=== PATIENT | female | born 1980 | race Two or more races ===

== ENCOUNTER 2020-11-08 06:07 | Inpatient (IN) | payer OTHER ==
[~2020-11-08] VITALS: Ht 167.6 cm; Wt 94.3 kg
[2020-11-08] VITALS (11 sets, daily range): BP systolic 103–141; BP diastolic 55–82
[~2020-11-08 06:07] MED LIST: CELEXA20 MG ORAL; GABAPENTIN100 MG ORAL; IBUPROFEN600 M1 ORAL; Pantoprazole Inj IVP SCH; TRAMADOL HCL50 MG ORAL; Vancomycin 1gm/NS 275ml IVPB SCH
[2020-11-08] MEDS ORDERED: fentaNYL 100 mcg/2 mL IV ONE ×2 (06:56→12:39)
[2020-11-08] MEDS ORDERED: Midazolam 2mg/2ml Inj ONE (06:57)
[2020-11-08] MEDS ORDERED: Lidocaine 1% MPF 10mg/ml 5ml ONE (06:58)
[2020-11-08] MEDS: MAGNESIUM SULFATE 1 GM IVPB SCH (07:00)
[2020-11-08] MEDS ORDERED: EPINEPHrine 1mg/1ml Amp ONE (07:01)
[2020-11-08] MEDS ORDERED: Pantoprazole Inj ONE (07:01)
[2020-11-08] MEDS ORDERED: Bacitracin Oint 15gm Tube TOPIC ONE (07:01)
[2020-11-08] MEDS ORDERED: Gelfoam Size TOPIC ONE (07:02)
[2020-11-08] MEDS ORDERED: Bupivacaine 0.5% Inj 30 ml vial INJ ONE ×4 (07:02→13:25)
[2020-11-08] MEDS ORDERED: Bacitracin 50000 Units Vial ONE (07:03)
[2020-11-08] MEDS ORDERED: Rocuronium Bromide 50mg/5ml Inj IV ONE (07:03)
[2020-11-08] MEDS ORDERED: Succinylcholine 20mg/ml 10ml vial ONE (07:03)
[2020-11-08] MEDS ORDERED: Thrombin 5000 units TOPIC ONE ×2 (07:03→07:04)
[2020-11-08] MEDS ORDERED: Heparin 1000 units/ml 1ml Vial ONE (07:05)
[2020-11-08] MEDS ORDERED: Vancomycin 1gm vial IVPB ONE (07:23)
[2020-11-08] MEDS ORDERED: TransDerm Scop 1.5mg/72HR Patch TDERMAL ONE (07:34)
[2020-11-08] MEDS ORDERED: NS Irrig 1000ml IRRIG ONE ×2 (07:41→08:34)
[2020-11-08] MEDS ORDERED: Sterile Water Irrig 1000ml IRRIG ONE (08:00)
[2020-11-08] MEDS ORDERED: LR 1000ml ONE ×2 (08:00)
[2020-11-08] MEDS ORDERED: propofoL 1,000mg/100ml IV ONE (08:00)
--- NOTE | 2020-11-08 08:14 | Pre-Procedure Note/Attestation ---
Pre-Procedure Note/Attestation Complete Prior to Procedure Planned Procedure: bilateral Procedure Narrative: revision of hardware, removal of pedicle screws at L5-S1 level with decompression of the L4-5 level and pedicle screw fixation from L4-L5 level with posterior lateral arthrodesis, use of allograft, autograft and iliac crest bone marrow aspirate. Attestation I attest that I discussed the nature of the procedure; its benefits; risks and complications; and alternatives (and the risks and benefits of such alternatives), prior to the procedure, with the patient (or the patient's legal signs sales representative). I attest that, if there was a reasonable possibility of needing a blood transfusion, the patient (or the patient's legal signs sales representative) was given the [place] Department [employer] [facility] standardized written summary, pursuant to the [place] Blood Safety Act ([place] Health and Safety Code # 1645, as amended). I attest that I re-evaluated the patient just prior to the surgery and that there has been no change in the patient's H&P, except as documented below: Bernabe Wallis MD Nov 08, 2020 08:14
[2020-11-08] MEDS ORDERED: ePHEDrine 50mg/ml Inj ONE (09:11)
[2020-11-08] MEDS ORDERED: Sodium Chloride 10ml vial INJ ONE ×2 (09:11→09:28)
[2020-11-08] MEDS ORDERED: Morphine Sulfate 10mg/ml Inj ONE (09:27)
[2020-11-08] MEDS ORDERED: Neostigmine 1mg/ml 10ml Inj ONE (09:28)
[2020-11-08] MEDS ORDERED: Glycopyrrolate 0.2mg/ml 1ml Vial ONE (09:28)
--- NOTE | 2020-11-08 09:43 | Anethesia Preoperative Eval ---
Anesthesia Pre-op PMH/ROS General Date of Evaluation: Nov 08, 2020 Time of Evaluation: 07:16 Anesthesiologist: Stefanie ASA Score: ASA 2 Mallampati Score Class I : Soft palate, uvula, fauces, pillars visible Class II: Soft palate, uvula, fauces visible Class III: Soft palate, base of uvula visible Class IV: Only hard plate visible Mallampati Classification: Class III - small mouth opening Surgeon: Bimal Diagnosis: Lumbar radiculopathy Surgical Procedure: Revision of posterior lumbar fusion Anesthesia History: PONV Family History: no anesthesia problems Allergies: Coded Allergies: ALCOHOL (Verified Allergy, Severe, RASH, 11/07/20) GUM MASTIC (Verified Allergy, Severe, RASH, 11/07/20) METHYL SALICYLATE (Verified Allergy, Severe, RASH, 11/07/20) STORAX (Verified Allergy, Severe, RASH, 11/07/20) ACETAMINOPHEN (Verified Allergy, Intermediate, RASH, ITCHING, 11/07/20) HYDROCODONE (Verified Allergy, Intermediate, RASH, ITCHING, 11/07/20) Patient NPO?: Yes Past Medical History Cardiovascular: Denies: HTN, CAD, OR, valve dz, arrhythmia, other Pulmonary: Denies: asthma, COPD, VANDANA, other Gastrointestinal/Genitourinary: Reports: GERD - mild; Denies: CRI, ESRD, other Neurologic/Psychiatric: Reports: depression/anxiety, other - chronic pain; Denies: dementia, CVA, TIA Endocrine: Denies: DM, hypothyroidism, steroids, other HEENT: Denies: cataract (L), cataract (R), glaucoma, LYTTON (L), LYTTON (R), other Hematology/Immune: Denies: anemia, DVT, bleeding disorder, other Musculoskeletal/Integumentary: Denies: OA, RA, DJD, DDD, edema, other Other: other - overweight PMH Narrative: as above PSxH Narrative: See H&P Anesthesia Pre-op Phys. Exam Physician Exam Last Vital Signs Date Time Temp Pulse Resp B/P (MAP) Pulse Ox O2 Delivery O2 Flow Rate FiO2 11/08/20 06:54 Room Air 11/08/20 06:48 97.2 81 18 129/75 (93) 98 Constitutional: NAD Neurologic: CN 2-12 intact Cardiovascular: RRR, no M/R/G Respiratory: CTA Gastrointestinal: S/NT/ND Airway Exam Mallampati Score: Class III MO: limited Neck: short ROM: limited Teeth: intact Dentures: no upper, no lower Anesthesia Pre-op A/P Labs see chart Urine Test Test 11/08/20 06:20 Urine HCG, Qualitative Negative (NEGATIVE) Studies Pre-op Studies: EKG - NSR Risk Assessment & Plan Assessment: ASA 2 Plan: GA with ETT prone position, neuromonitoring, PONV prevention Status Change Before Surgery: No Pre-Antibiotics Drug: Vanco 1gr., Gentamycin 80 mg. Given Within 1 Hr of Incision: Yes Time Given: 09:10 Vipul Watts MD Nov 08, 2020 09:43
[2020-11-08] MEDS ORDERED: Acetaminophen (Non formulary) 100 ML IV ONE (09:45)
[2020-11-08] MEDS ORDERED: TransDerm Scop 1.5mg/72HR Patch TDERMAL SCH (09:47)
[2020-11-08] MEDS ORDERED: Metoprolol Tartrate 5mg/5ml Inj ONE (10:50)
[2020-11-08] MEDS ORDERED: Labetalol 5mg/ml 20ml vial IV ONE (12:23)
[2020-11-08] MEDS ORDERED: Metoclopramide 10mg/2ml Inj IVP PRN (12:45)
[2020-11-08] MEDS ORDERED: Meperidine 25mg/1ml Inj (FOR RIGORS ONLY) IV PRN (12:45)
[2020-11-08] MEDS ORDERED: Hydromorphone 0.5mg/0.5ml inj IVP PRN (12:45)
[2020-11-08] MEDS ORDERED: DiphenhydrAMINE 50mg/ml Inj IVP PRN (12:45)
[2020-11-08] MEDS ORDERED: LR 1000ml 1,000 ML IVLG SCH (12:45)
[2020-11-08] MEDS ORDERED: Ketorolac 30mg Inj IV PRN (12:45)
[2020-11-08] MEDS ORDERED: Midazolam 2mg/2ml Inj IVP PRN (12:45)
[2020-11-08] MEDS ORDERED: Rate Change PCA 1 Each MISC PRN (14:15)
[2020-11-08] MEDS ORDERED: PCA Education Pamphlet MISC SCH (14:15)
[2020-11-08] MEDS ORDERED: PCA HYDROmorphone 1mg/ml 30 ML IV PRN (14:15)
[2020-11-08] MEDS ORDERED: Naloxone 0.4mg/ml Inj IVP PRN ×2 (14:15→14:30)
--- NOTE | 2020-11-08 14:17 | Brief Operative Note ---
Immediate Post Operative Note Operative Note Chief Complaint: Intractable right LE radiculopathy. s/p L4-5XLIF. h/oL5-S1 TLIF. Pre-op Diagnosis: 1. S/p slip and fall with intractable low back pain and radiculopathy. 2. h/o L5-S1 TLIF 3. S/p L4-5 XLIF 4. Intractable R lower extremity radiculopathy. 5. Central canal and foraminal stenosis L4-5 level 6. Lack of improvement from medical therapy, interventional injections. Procedure: 1. Removal of hardware L5-S1 bilaterally, two rods, 4 pedicle screws and 4 set screws 2. Trans pedicular fixation L4 and L5 level bilaterally, 6.0 x 50 mm and 7.0 by 45 mm U&I system 3. arthrodesis L4-5 level, bilaterally 40 mm rods 4. Posterolateral fusion L4-5 level bilaterally, autologous bone, allograft, iliac crest bone marrows pirate concentrate 5. [place] of local bone from lamina/facet. 6. Right iliac crest bone marrow aspirate. 7. Transforaminal decompression R L4 and L5 roots, total facetectomy. 8. R L4 hemilaminectomy removal of epidural scar and complete central and lateral recess decompression. 9. Application of epidural fat graft to L4 laminectomy defect. 10. Neurolysis of the right L5 nerve root. 11. Intra-operative neuromonitoring and pedicle screw stimulation, SSEP and dermatomal evoked potential monitoring 12. Microdissection 13. Supervision, interpretation and use of fluoroscopy 14. Modifier 22 due to difficulty of the case secondary to increased BMI, extensive jennifer at the operative site, depth of the surgical corridor. Post-op Diagnosis: same as pre-op Findings: consistent w/pre-op dx studies Surgeon: Bernabe Wallsi MD Straightening Machine Feeder: Adama Daniel MD Anesthesiologist: Vipul Watts MD Anesthesia: general Specimen: yes - Epidural scar L4-5 level Complications: none Condition: stable Fluids: 105 liters crystalloids Estimated Blood Loss: volume - 150 cc Drains: hemovac Implant(s) used?: Yes - U&I pedicle screw system Bernabe Wallis MD Nov 08, 2020 14:17
--- NOTE | 2020-11-08 14:18 | Immediate Post-Op Evaluation ---
Immediate Post-Op Evalulation Immediate Post-Op Evalulation Procedure: Revision of lumbar L4-L5 interbody fusion with hardwear removal and decompr Date of Evaluation: Nov 08, 2020 Time of Evaluation: 14:15 IV Fluids: 1200 Blood Products: none Estimated Blood Loss: 150 Urinary Output: 400 Blood Pressure Systolic: 112 Blood Pressure Diastolic: 62 Pulse Rate: 98 Respiratory Rate: 20 O2 Sat by Pulse Oximetry: 98 Temperature (Fahrenheit): 98.9 Pain Score (1-10): 1 Nausea: No Vomiting: No Complications none Patient Status: reacts, patent, extubated, none Hydration Status: adequate Vipul Watts MD Nov 08, 2020 14:18
[2020-11-08] MEDS ORDERED: Milk of Magnesia 30ml Ud ORAL PRN (14:30)
--- NOTE | 2020-11-08 14:52 | General Progress Note ---
Progress Note Progress Note Neurosurgery Post-op S/ Incsional pain under control. Increased sensation in the right leg. O/ Last 24 Hour Vital Signs Date Time Temp Pulse Resp B/P (MAP) Pulse Ox O2 Delivery O2 Flow Rate FiO2 11/08/20 14:30 99 14 121/66 100 Simple Mask 6 11/08/20 14:20 103 10 117/62 100 Simple Mask 6 11/08/20 14:18 98 20 98 11/08/20 14:10 100 11 113/65 100 Simple Mask 6 11/08/20 14:05 110 12 110/60 100 Simple Mask 6 11/08/20 14:02 98.9 119 20 103/55 100 Simple Mask 6 11/08/20 06:54 Room Air 11/08/20 06:48 97.2 81 18 129/75 (93) 98 Alert and oriented x 4 Moves all extremities well Improvement in right leg sensation. HV minimal output. doing well to floor when cleared by PACU. updated Bernabe Wallis MD Nov 08, 2020 14:52
--- NOTE | 2020-11-08 16:00 | Diagnostic Imaging Report ---
INDICATION: Pain, intraoperative TECHNIQUE: Intraoperative imaging Fluoroscopy time: 40 seconds Total dose: 0.31 mGym2 Total number of images: 16 COMPARISON: None FINDINGS: Intraoperative images document stools overlying S1, L4, and L2-3 disc, subsequent hardware removal from S1 and placement of hardware bridging L4 and L5 IMPRESSION: Intraoperative imaging, as described
--- NOTE | 2020-11-08 16:00 | Operative Note - Dictated ---
DATE OF OPERATION: 11/08/2020 PREOPERATIVE DIAGNOSES: 1. History of slip and fall in May 2018 with intractable back pain and lower extremity radiculopathy. 2. Status post right L4-L5 extreme lateral interbody fusion. 3. History of prior L5-S1 transforaminal lumbar interbody fusion by outside surgeon. 4. Persistent right lower extremity radiculopathy. 5. Lack of improvement from conservative measures, neuropathic pain medications, and lumbar bracing. POSTOPERATIVE DIAGNOSES: 1. History of slip and fall in May of 2018 with intractable back pain and lower extremity radiculopathy. 2. Status post right L4-L5 extreme lateral interbody fusion. 3. History of prior L5-S1 transforaminal lumbar interbody fusion by outside surgeon. 4. Persistent right lower extremity radiculopathy. 5. Lack of improvement from conservative measures, neuropathic pain medications, and lumbar bracing. PROCEDURE: 1. Removal of bilateral hardware from L5-S1 level including 2 rods, 4 set screws, and 4 pedicle screws. 2. Transpedicular fixation at L4 and L5 levels bilaterally using 6.0 x 50 mm and 7.0 x 45 mm pedicle screws respectively using U and I system. 3. Bilateral arthrodesis L4-L5 level 40 mm rods. 4. Posterolateral arthrodesis with autologous bone graft, allograft, iliac crest bone marrow aspirate concentrate at L4-L5 bilaterally. 5. [place] of local bone from lamina and the facet resection. 6. Right iliac crest bone marrow aspirate and processing for grafting. 7. Transforaminal decompression of right L4 and L5 roots with total inferior right L5 facetectomy. 8. Right L4 hemilaminectomy, medial facetectomy and foraminotomy, removal of epidural scar, complete central and lateral recess decompression and ligamentectomy. 9. Application of epidural fat graft, right L4-L5 laminar defect. 10. Neurolysis of the right L5 nerve root with microdissection. 11. Intraoperative use interpretation of fluoroscopy. 12. Intraoperative neuromonitoring and pedicle screw stimulation, somatosensory-evoked potential and dermatomal-evoked potential monitoring and interpretation. 13. Modifier 22 secondary to difficulty of the case, increased patient's BMI, extensive operative site scar, and depth of surgical corridor. SURGEON: Bernabe Wallis MD INTERNATIONAL EDITORIAL PRODUCER SURGEON: Adama Daniel MD ANESTHESIOLOGIST: Vipul Watts MD ANESTHESIA TYPE: General endotracheal anesthesia. EBL: 150 mL. IV FLUIDS: 1.5 L crystalloids. DRAIN: Epidural Hemovac. INDICATION: Patient is a pleasant 40-year-old woman with a prior history of L5-S1 transforaminal pedicle screw fixation and interbody fusion. She had done well after this procedure up until a slip and fall in May of 2018. She developed intractable back pain and radiculopathy. She has undergone a number of conservative measures including medical therapy and activity modification without improvement. She underwent an extreme lateral L4-L5 interbody fusion approximately in July 2020, with improvement in her back pain, but persistent right lower extremity radiculopathy. Postoperative imaging studies including x-ray, CT scan, and MRIs were performed, which showed appropriate placement of the interbody cage, but persistent central compression of the nerve root. Patient was treated with lumbar bracing, activity modification, and neuropathic pain medications including gabapentin without improvement. After detailed discussion with patient and her family, patient decided to proceed with the above surgery. Risks of the operation including, but not limited to risk of infection, bleeding, nerve damage, paralysis, spinal fluid leakage requiring revision surgery, hardware failure requiring revision surgery, adjacent segment breakdown requiring additional treatments in the future including medical therapy, physical therapy, interventional pain injections, and ultimately adjacent segment fusion, risk of anesthesia including coma and were all discussed with the patient in detail. Increased risk of perioperative complications due to potential exposure and infection by COVID-19 was also explained to the patient. She voiced understanding of these risks and signed a consent to proceed. DETAIL OF PROCEDURE: Patient was evaluated in the preoperative area. History and COVID-19 results and questionnaire were reviewed. She had a face mask throughout the encounter. She was accompanied to the operating room on a gurney. She was identified and underwent uneventful endotracheal intubation. She received preincisional IV antibiotics, magnesium sulfate, and Decadron. Patient was placed prone on a Varinder table. Care was taken to pad all pressure points. Neuromonitoring leads were attached. Boss catheter was inserted prior to the positioning. Prior posterior incision site was identified. Hair was removed using a razor. Back was pre-prepped. Fluoroscopic images were obtained with skin markers in place to localize the lumbar spine. Next, back was prepped and draped in sterile fashion. The circulating nurse called the time-out and the planned procedure was decided and verified. The microscope was brought to the field. The incision site was infiltrated using Marcaine and epinephrine. Using a #15 blade, the prior midline incision was reopened. Dissection was carried down to the level of the subcutaneous fascia. Subcutaneous fascia was opened. A fat graft was obtained and placed in antibiotic irrigation. Using a cannulated trocar, the right iliac crest was cannulated. A 30 mL of bone marrow was removed in 10 mL increments. Between each 10 mL removal, the trocar was advanced 1 cm. The bone marrow was handed off to a dental laboratory technician, who then returned highly concentrated stem cells portion of the iliac crest bone marrow aspirate to the field, which was then mixed with DBM allograft. A 2 cm paramedian incision was created on each side from midline. The fascia was incised using Bovie knife. A plane was then created in the intermuscular layer to the L4-L5 and L5-S1 facet capsule complexes bilaterally. The prior hardware was identified. There was extensive scarring. With meticulous microdissection, the scar was removed. The hardware was exposed. Using an universal set, the hardware was removed in total including 4 set screws, 2 rods, and 4 pedicle screws. Attention was given to the right L4-L5 level. There was extensive epidural scarring. Using meticulous microdissection, the scar was elevated from the epidural space. Due to the complexity of the case, the patient's BMR requiring additional time for positioning, and depth of the surgical corridor, modifier 22 is being used here. Using high-speed drill, a right L4 hemilaminectomy was performed. Bone was harvested for future grafting. Using sharp curette dissection, the epidural scar was removed from the under portion of the L4 hemilamina. Using high-speed drill, the inferior L4 facet was removed at the level of the pars. Complete right L4 facetectomy was performed. The superior L5 facet was also drilled down to increase the foraminal height. A right transforaminal approach was then created for decompression of the exiting L4 nerve root and the traversing right L5 nerve root. Using bipolar cautery and micro scissors and micro dissection, the right L5 nerve root was freed from the surrounding scar. Neurolysis of the L5 nerve root was necessary to mobilize the thecal sac medially and ensure no further compression of the nerve roots anteriorly. At the baseline, there was significant delay of the right L4 and absent right L5 signal. At the end of the decompression, the right L4 and L5 signals became symmetrical to the left side. This was a significant improvement in neuromonitoring observed during the procedure. The dura was protected throughout the decompression using Gel-Foam and cottonoids. There was no evidence of intraoperative CSF leak. The central canal was decompressed by removing the ligamentum flavum centrally. Using high-speed drill, the underbelly of the L4 lamina was drilled and a decompression was carried out to the contralateral side. After adequate decompression, an epidural fat graft was placed to cover the laminectomy defect and a transforaminal decompression at the L4-L5 level. This provided excellent coverage. Attention was given to the pedicle screw trajectories for L4 and L5. A 7.0 x 45 mm screw and a 6.0 x 50 mm screw sizes were then chosen for the L5 and S1 levels. Pedicle screws were inserted under fluoroscopic guidance bilaterally at the L4 and L5 levels. The pedicle screws were then stimulated using intraoperative pedicle screw stimulation. There was no evidence of electrical breach. Wound was irrigated with copious amount of antibiotic irrigation. Two 40 mm rods were then inserted and secured to the pedicle screws bilaterally. Posterolateral arthrodesis was also performed with autologous bone graft, allograft and autograft combination and placed into the posterolateral portion of the facets. This was performed after drilling the posterolateral facets, particularly on the left side. An epidural drain was placed on the right-hand side and brought out through a separate stab incision. The incision was closed meticulously in multiple layers using 0, 2-0, and 3-0 Vicryl stitches. The skin was dressed with Dermabond. Sterile dressing was applied. The drain was sutured to the skin using a 4-0 Monocryl suture. Patient tolerated this procedure well. Instrument count was correct at the end of the case. COMPLICATIONS: None. Bernabe Wallis M.D. DR: MOHIT JOB#: [id number] CC: JOHNSON
[2020-11-08] MEDS: Docusate 100mg cap ORAL SCH (18:00)
[2020-11-08] MEDS: Docusate Sod/Senna tab ORAL SCH (18:00)
[2020-11-08] MEDS: NS w/KCl 20mEq 1000ml 1,000 ML IV SCH (18:18)
[2020-11-08] MEDS: PCA shift volume MISC SCH (19:00)
--- NOTE | 2020-11-08 19:31 | General Progress Note ---
Progress Note Progress Note Neurosurery follow-up S/ Comfortable on FILM PROCESSOR mnimal use. Feels more sensation in th eright leg and strength. O/ Last 24 Hour Vital Signs Date Time Temp Pulse Resp B/P (MAP) Pulse Ox O2 Delivery O2 Flow Rate FiO2 11/08/20 16:27 108 18 97 11/08/20 15:34 98.6 108 18 119/82 (94) 97 11/08/20 15:31 Nasal Cannula 2.0 11/08/20 15:24 99.1 11/08/20 15:24 11 11/08/20 15:09 12 11/08/20 15:00 99.1 100 13 139/81 100 Nasal Cannula 3 11/08/20 14:54 13 11/08/20 14:45 98 12 141/71 100 Nasal Cannula 3 11/08/20 14:30 99 14 121/66 100 Simple Mask 6 11/08/20 14:20 103 10 117/62 100 Simple Mask 6 11/08/20 14:18 98 20 98 11/08/20 14:10 100 11 113/65 100 Simple Mask 6 11/08/20 14:05 110 12 110/60 100 Simple Mask 6 11/08/20 14:02 98.9 119 20 103/55 100 Simple Mask 6 11/08/20 06:54 Room Air 11/08/20 06:48 97.2 81 18 129/75 (93) 98 Alert and oriented x 4 Normal sensation in th eextremities Significant improvement in th eright Quad and anteriro tibialis strength Minimal HV output doing well D/c FILM PROCESSOR in am start oral pain medications Lumbar brace at pat's bedside with front extension. PT in am D/c stephenson in am advance diet d/w with nursing in detail Dr. Day internal medicine follow up Bernabe Wallis MD Nov 08, 2020 19:31
[2020-11-08] MEDS: Vancomycin 1 GM in D5W 275 ML IVPB SCH (20:35)
--- NOTE | 2020-11-08 22:01 | History and Physical Report ---
DATE OF ADMISSION: 11/08/2020 HISTORY OF PRESENT ILLNESS: Patient is an unfortunate female, status post lumbar fusion who has been having a lot of pain mainly in the back area. She denies nausea or vomiting. She denies any palpitation. She is a smoker. PAST MEDICAL HISTORY: Significant for none. MEDICATIONS: Prior to hospitalization, Celexa, tramadol, Motrin, MVI, and vitamin. She resumed her Celexa here. PHYSICAL EXAMINATION: HEENT: Normocephalic and atraumatic. Extraocular muscles intact. HEART: S1 and S2. LUNGS: Clear. ABDOMEN: Soft. EXTREMITIES: Moving all 4 extremities. ASSESSMENT AND PLAN: 1. Status post complex lumbar spine surgery. 2. DVT prophylaxis with sequential compression stocking. 3. VINEET hose stocking. 4. Perioperative antibiotic prophylaxis. 5. Postoperatively, physical therapy. 6. Resume Celexa. 7. Patient is a smoker. We will give her nicotine patch. Case was discussed with the nurse at length. Santo Day M.D. DR: KIM JOB#: [id number] CC:
[2020-11-09] VITALS: BP 131/79
[2020-11-09 04:00] VITALS: BP 124/79
[2020-11-09] MEDS: NS w/KCl 20mEq 1000ml 1,000 ML IV SCH (04:16)
[2020-11-09 05:34] LABS: BASOPHILS % (AUTO) 0.4 % (0.0-2.0); EOSINOPHILS % (AUTO) 0.3 % (0.0-3.0); HEMATOCRIT 31.1 % (37.0-47.0); HEMOGLOBIN 11.1 G/DL (12.0-16.0); LYMPHOCYTES % (AUTO) 15.1 % (20.0-45.0); MEAN CORPUSCULAR VOLUME 88 FL (80-99); MONOCYTES % (AUTO) 6.6 % (1.0-10.0); NEUTROPHILS % (AUTO) 77.5 % (45.0-75.0); PLATELET COUNT 256 K/UL (150-450); RED BLOOD COUNT 3.54 M/UL (4.20-5.40); WHITE BLOOD COUNT 16.3 K/UL (4.8-10.8)
[2020-11-09 05:41] LABS: ANION GAP 6 mmol/L (5-15); BLOOD UREA NITROGEN 10 mg/dL (7-18); CALCIUM 8.3 MG/DL (8.5-10.1); CARBON DIOXIDE 27 MMOL/L (21-32); CHLORIDE 106 MMOL/L (98-107); CREATININE 0.6 MG/DL (0.55-1.30); POTASSIUM 3.9 MMOL/L (3.5-5.1); SODIUM 139 MMOL/L (136-145)
[2020-11-09] MEDS: PCA shift volume MISC SCH (07:00)
[2020-11-09 08:38] VITALS: BP 113/74
[2020-11-09] MEDS: Citalopram Hydrobromide 10mg Tab ORAL SCH (08:38)
[2020-11-09] MEDS: Docusate 100mg cap ORAL SCH ×2 (08:38→17:41)
[2020-11-09] MEDS: Docusate Sod/Senna tab ORAL SCH ×2 (08:39→17:41)
[2020-11-09] MEDS: Vancomycin 1 GM in D5W 275 ML IVPB SCH (08:39)
--- NOTE | 2020-11-09 09:57 | 48 Hour Post Anesthesia Eval ---
Post Anesthesia Evaluation Procedure: Revision of lumbar L4-L5 interbody fusion with hardwear removal and decompr Date of Evaluation: Nov 09, 2020 Time of Evaluation: 09:56 Blood Pressure Systolic: 113 0: 74 Pulse Rate: 78 Respiratory Rate: 20 Temperature (Fahrenheit): 97.8 O2 Sat by Pulse Oximetry: 98 Airway: patent Nausea: No Vomiting: No Pain Intensity: 3 Hydration Status: adequate Cardiopulmonary Status: stable Mental Status/LOC: patient returned to baseline Follow-up Care/Observations: n/a Post-Anesthesia Complications: none Follow-up care needed: N/A Vipul Watts MD Nov 09, 2020 09:57
[2020-11-09] MEDS: DiphenhydrAMINE 50mg/ml Inj IVP PRN ×2 (12:25→21:53)
--- NOTE | 2020-11-09 13:19 | General Progress Note ---
Progress Note Progress Note Neurosurgery post-op Day #1 S/ Incisional pain 5/10 with oral pain medications. Ambulated with OT. Voided. No leg numbness or weakness. O/ Vs: Last 24 Hour Vital Signs Date Time Temp Pulse Resp B/P (MAP) Pulse Ox O2 Delivery O2 Flow Rate FiO2 11/09/20 09:57 78 20 98 11/09/20 08:38 99.7 87 18 113/74 (87) 95 11/09/20 04:00 98.2 98 22 124/79 (94) 96 11/09/20 04:00 98 22 96 11/09/20 00:00 115 22 97 11/09/20 00:00 97.8 115 22 131/79 (96) 97 11/08/20 21:00 Nasal Cannula 1.0 11/08/20 20:00 106 20 97 11/08/20 20:00 97.8 106 20 108/73 (85) 97 11/08/20 16:27 108 18 97 11/08/20 15:34 98.6 108 18 119/82 (94) 97 11/08/20 15:31 Nasal Cannula 2.0 11/08/20 15:24 99.1 11/08/20 15:24 11 11/08/20 15:09 12 11/08/20 15:00 99.1 100 13 139/81 100 Nasal Cannula 3 11/08/20 14:54 13 11/08/20 14:45 98 12 141/71 100 Nasal Cannula 3 11/08/20 14:30 99 14 121/66 100 Simple Mask 6 11/08/20 14:20 103 10 117/62 100 Simple Mask 6 11/08/20 14:18 98 20 98 11/08/20 14:10 100 11 113/65 100 Simple Mask 6 11/08/20 14:05 110 12 110/60 100 Simple Mask 6 11/08/20 14:02 98.9 119 20 103/55 100 Simple Mask 6 HV 50 cc Alert and oriented x 4 Moves all extremities well Incision is dry. HV removed without complication. Wound redressed (Foam Tape) Patient's skin tolerated foam tape well lower extremity strength is 5/5. lands: Laboratory Tests 11/09/20 05:06: White Blood Count 16.3H, Red Blood Count 3.54L, Hemoglobin 11.1L, Hematocrit 31.1L, Mean Corpuscular Volume 88, Mean Corpuscular Hemoglobin 31.4H, Mean Corpuscular Hemoglobin Concent 35.7, Red Cell Distribution Width 13.0, Platelet Count 256, Mean Platelet Volume 6.9, Neutrophils (%) (Auto) 77.5H, Lymphocytes (%) (Auto) 15.1L, Monocytes (%) (Auto) 6.6, Eosinophils (%) (Auto) 0.3, Basophils (%) (Auto) 0.4, Sodium Level 139, Potassium Level 3.9, Chloride Level 106, Carbon Dioxide Level 27, Anion Gap 6, Blood Urea Nitrogen 10, Creatinine 0.6, Estimat Glomerular Filtration Rate > 60, Glucose Level 110H, Calcium Level 8.3L doing well Lumbar brace fitted to the patient. Wear when OOB. d/c planning Internal medicine consult in progress. Bernabe Wallis MD Nov 09, 2020 13:19
[2020-11-09] MEDS: HYDROmorphone 1mg/ml Carpuject IVP PRN ×3 (15:59→22:48)
[2020-11-09 16:20] VITALS: BP 123/76
[2020-11-09 20:00] VITALS: BP 130/86
[2020-11-10] VITALS: BP 126/80
[2020-11-10] MEDS: HYDROmorphone 1mg/ml Carpuject IVP PRN ×10 (00:50→22:34)
--- NOTE | 2020-11-10 02:45 | Discharge Summary ---
DATE OF ADMISSION: 11/08/2020 DATE OF DISCHARGE: 11/10/2020 DISCHARGE DIAGNOSIS: Status post redo lumbar decompressive surgery and pedicle screw fixation, L4-L5 level. HISTORY OF PRESENT ILLNESS: Refer to the chart for a detailed H and P. HOSPITAL COURSE: The patient was admitted on November 08, 2020, underwent uneventful redo post lumbar decompressive surgery, removal of hardware at L5-S1, instrumented fusion at L4-L5 with posterolateral arthrodesis. The patient had uneventful hospital course. She is ambulating. Her pain is under control with oral pain medications. She is tolerating oral food. Her right lower extremity symptoms have significantly improved in the postoperative period. The patient was provided detailed instructions regarding home care regarding her wound and activity. DISPOSITION: Home. MEDICATIONS: [place] as prescribed. The patient also has home medications that were reconciliated by Internal Medicine, Dr. Day. ACTIVITY: The patient is advised to wear lumbar brace when out of bed. She is to use ice for the lumbar incision every 2 hours for 30 minutes as needed for control of pain. DIET: Regular. DISCHARGE FOLLOWUP: Follow up with Dr. Wallis in two weeks. COMPLICATIONS: None. Bernabe Wallis M.D. DR: LOU JOB#: [id number] CC:
[2020-11-10 04:00] VITALS: BP 133/80
[2020-11-10 08:00] VITALS: BP 133/83
[2020-11-10] MEDS: Citalopram Hydrobromide 10mg Tab ORAL SCH (08:59)
[2020-11-10] MEDS: Docusate 100mg cap ORAL SCH ×2 (08:59→17:33)
[2020-11-10] MEDS: Docusate Sod/Senna tab ORAL SCH ×2 (08:59→17:33)
[2020-11-10 12:15] VITALS: BP 132/82
[2020-11-10 16:00] VITALS: BP 110/73
[2020-11-10] MEDS: DiphenhydrAMINE 50mg/ml Inj IVP PRN (16:32)
[2020-11-10] MEDS: Cyclobenzaprine 10mg Tab ORAL PRN (17:34)
[2020-11-10] MEDS ORDERED: Lactulose 20gm/30ml UDC ORAL SCH (18:00)
[2020-11-10] MEDS: oxyCONTIN 10mg tab ORAL SCH (18:06)
[2020-11-10 19:50] LABS: BASOPHILS % (AUTO) 1.4 % (0.0-2.0); EOSINOPHILS % (AUTO) 1.3 % (0.0-3.0); HEMATOCRIT 32.6 % (37.0-47.0); HEMOGLOBIN 11.6 G/DL (12.0-16.0); LYMPHOCYTES % (AUTO) 25.4 % (20.0-45.0); MEAN CORPUSCULAR VOLUME 86 FL (80-99); MONOCYTES % (AUTO) 11.2 % (1.0-10.0); NEUTROPHILS % (AUTO) 60.7 % (45.0-75.0); PLATELET COUNT 265 K/UL (150-450); RED BLOOD COUNT 3.79 M/UL (4.20-5.40)
[2020-11-10 19:53] VITALS: BP 112/77
[2020-11-10 20:05] LABS: ALANINE AMINOTRANSFERASE 40 U/L (12-78); ALBUMIN 3.1 G/DL (3.4-5.0); ALBUMIN/GLOBULIN RATIO 0.7 (1.0-2.7); ALKALINE PHOSPHATASE 103 U/L (46-116); ANION GAP 6 mmol/L (5-15); ASPARTATE AMINO TRANSFERASE 27 U/L (15-37); BILIRUBIN,TOTAL 0.5 MG/DL (0.2-1.0); BLOOD UREA NITROGEN 12 mg/dL (7-18); CALCIUM 8.9 MG/DL (8.5-10.1); CARBON DIOXIDE 31 MMOL/L (21-32); CHLORIDE 99 MMOL/L (98-107); CREATININE 0.7 MG/DL (0.55-1.30); POTASSIUM 3.7 MMOL/L (3.5-5.1); SODIUM 136 MMOL/L (136-145)
--- NOTE | 2020-11-10 22:11 | Diagnostic Imaging Report ---
EXAM: XR Chest, 1 View CLINICAL HISTORY: ABD PAIN TECHNIQUE: Frontal view of the chest. COMPARISON: No relevant prior studies available. FINDINGS: Lungs: Small amount of bibasilar linear opacities Pleural space: Unremarkable. No pneumothorax. Heart: Unremarkable. No cardiomegaly. Mediastinum: Unremarkable. Bones/joints: No acute findings. IMPRESSION: Small amount of bibasilar atelectasis and less likely pneumonia
--- NOTE | 2020-11-11 00:55 | Diagnostic Imaging Report ---
EXAM: US Duplex Bilateral Lower Extremities Veins CLINICAL HISTORY: DVT TECHNIQUE: Real-time duplex ultrasound scan of the bilateral lower extremity veins integrating B-mode two-dimensional vascular structure, Doppler spectral analysis, color flow Doppler imaging and compression. COMPARISON: No relevant prior studies available. FINDINGS: Right deep veins: Unremarkable. No DVT in the right common femoral, femoral, proximal deep femoral or popliteal veins. The veins demonstrate normal color flow, are normally compressible, with normal phasic flow and/or augmentation response. Right superficial veins: Unremarkable. No thrombus in the visualized right great saphenous vein. Left deep veins: Unremarkable. No DVT in the left common femoral, femoral, proximal deep femoral or popliteal veins. The veins demonstrate normal color flow, are normally compressible, with normal phasic flow and/or augmentation response. Left superficial veins: Unremarkable. No thrombus in the visualized left great saphenous vein. Soft tissues: No acute findings. No popliteal cyst. IMPRESSION: Normal bilateral lower extremity duplex venous ultrasound. No evidence of deep venous thrombosis in either lower extremity.
[2020-11-11] MEDS: traMADol 50mg tab ORAL PRN ×2 (01:24→18:54)
[2020-11-11 01:46] LABS: APPEARANCE,URINE SLIGHTLY CLOUDY; BILIRUBIN, URINE NEGATIVE (NEGATIVE); GLUCOSE, URINE (UA) NEGATIVE (NEGATIVE); KETONES,URINE 1+ (NEGATIVE); LEUKOCYTE ESTERASE ,URINE 1+ (NEGATIVE); NITRITE,URINE NEGATIVE (NEGATIVE); PH,URINE 6.5 (4.5-8.0); PROTEIN,URINE 1+ (NEGATIVE); UROBILINOGEN,URINE 1 MG/DL (0.0-1.0)
[2020-11-11 01:53] LABS: COLOR,URINE PALE YELLOW
[2020-11-11 03:56] VITALS: BP 107/70
[2020-11-11] MEDS: HYDROmorphone 1mg/ml Carpuject IVP PRN ×5 (04:02→15:28)
--- NOTE | 2020-11-11 04:44 | History and Physical Report ---
DATE OF ADMISSION: 11/08/2020 TIME: 9:47 HISTORY OF PRESENT ILLNESS: Due to COVID-19 pandemic, this was a tele-type visit. This is an unfortunate female who is status post complex spine surgery, who has been having pain. She has been on Dilaudid and Percocet. She is taking Dilaudid around the clock. She has been having temperature of 100.9. She denies fever or chills. She denies double vision or blurred vision. She denies cough. . She is status post complex spine surgery. Postoperative pain. Postoperative fever. . CBC, CMP has been ordered. Urinalysis will be ordered. Urine culture will be ordered. has been ordered. Blood culture x2 have been ordered, 15 minutes apart. The patient will get venous Doppler of both legs to make sure she does not have venous thrombosis postoperatively. . DVT will be ruled out. Pain control will be done. DVT prophylaxis with sequential compression stocking . PT/OT . The patient will be monitored. Pain management with OxyContin 10 mg 3 times a day was given to reduce IV Dilaudid. Case was discussed with Spine. Santo Day M.D. DR: WANDER JOB#: [id number] CC: Bernabe Wallis M.D.; Fax#: [phone]
[2020-11-11 08:00] VITALS: BP 106/69
[2020-11-11] MEDS: Docusate 100mg cap ORAL SCH ×2 (08:04→17:37)
[2020-11-11] MEDS: oxyCONTIN 10mg tab ORAL SCH ×3 (08:04→17:48)
[2020-11-11] MEDS: Citalopram Hydrobromide 10mg Tab ORAL SCH (08:05)
[2020-11-11] MEDS: Docusate Sod/Senna tab ORAL SCH ×2 (08:05→17:37)
[2020-11-11] MEDS: DiphenhydrAMINE 50mg/ml Inj IVP PRN ×2 (11:21→17:37)
[2020-11-11 12:00] VITALS: BP 112/73
[2020-11-11 16:00] VITALS: BP 121/77
[2020-11-11 19:44] VITALS: BP 107/67
--- NOTE | 2020-11-11 21:02 | History and Physical Report ---
DATE OF ADMISSION: 11/08/2020 Patient is status post complex spine surgery. Previously patient had a temperature 100.9. Her white count came down to 12.0 from 16.3 postoperative. Her hemoglobin, hematocrit, and platelets are stable. She denies any nausea or vomiting. She has a lot of pain. Chest x-ray that was obtained on the patient was no acute cardiopulmonary disorder. Venous Doppler exam was obtained and the patient, no DVT. UA that was obtained on the patient. There is 1+ leukocyte esterase. Urine culture is pending. The following will be done here as well. VITAL SIGNS: Stable. GENERAL: . HEART: S1, S2. LUNGS: Clear. ABDOMEN: Soft. EXTREMITIES: No clubbing or cyanosis. Patient will be placed on Cipro 500 twice a day for 5 days, awaiting culture. Continue pain management. DVT prophylaxis with compression stocking and VINEET hose stockings. We will monitor patient closely. I have asked patient not to take Dilaudid and stay on OxyContin and Percocet only. Santo Day M.D. DR: KIM JOB#: [id number] CC:
[2020-11-12 00:04] VITALS: BP 121/75
[2020-11-12] MEDS: DiphenhydrAMINE 50mg/ml Inj IVP PRN ×3 (01:14→13:59)
[2020-11-12] MEDS: traMADol 50mg tab ORAL PRN (02:40)
[2020-11-12 04:00] VITALS: BP 110/67
[2020-11-12] MEDS: Cyclobenzaprine 10mg Tab ORAL PRN (06:02)
[2020-11-12 08:00] VITALS: BP 114/67
[2020-11-12] MEDS: Citalopram Hydrobromide 10mg Tab ORAL SCH (08:20)
[2020-11-12] MEDS: Docusate Sod/Senna tab ORAL SCH (08:20)
[2020-11-12] MEDS: Docusate 100mg cap ORAL SCH (08:20)
[2020-11-12] MEDS: oxyCONTIN 10mg tab ORAL SCH ×2 (08:21→12:14)
[2020-11-12 12:00] VITALS: BP 135/74
== END 2020-11-12 16:46 | disposition home or self-care (01) | DRG 30 ==
LOC: SDSOVERFLO 06:07 → 3E 17:07
PROC: 4A11X4G Monitoring of Peripheral Nervous Electrical Activity, Intraoperative, External Approach (ICD-10-PCS; principal; 2020-11-08 07:30)
PROC: 07DR3ZZ Extraction of Iliac Bone Marrow, Percutaneous Approach (ICD-10-PCS; principal; 2020-11-08 07:30)
PROC: 01NB0ZZ Release Lumbar Nerve, Open Approach (ICD-10-PCS; principal; 2020-11-08 07:30)
PROC: 0SG0071 Fusion of Lumbar Vertebral Joint with Autologous Tissue Substitute, Posterior Approach, Posterior Column, Open Approach (ICD-10-PCS; principal; 2020-11-08 07:30)
PROC: 0SG3071 Fusion of Lumbosacral Joint with Autologous Tissue Substitute, Posterior Approach, Posterior Column, Open Approach (ICD-10-PCS; principal; 2020-11-08 07:30)
PROC: 0SP304Z Removal of Internal Fixation Device from Lumbosacral Joint, Open Approach (ICD-10-PCS; principal; 2020-11-08 07:30)
PROC: 0QB00ZZ Excision of Lumbar Vertebra, Open Approach (ICD-10-PCS; principal; 2020-11-08 07:30)
DX: M54.10 Radiculopathy, site unspecified (principal)
CPT/HCPCS: 36415; 71045; 72020; 76000; 80048; 80053; 81003; 81025; 85025; 86850; 86900; 86901; 87040; 87081; 87086; 93970; 94003; 94150; C9399; J1580; J2250; J2405; J2710; J7030